=== PATIENT | female | born 2000 | race Asian ===

== ENCOUNTER 2023-10-10 18:38 | Emergency (ER) | payer OTHER, SELFPAY ==
[2023-10-10 18:40] VITALS: BP 127/110; PULSE 120; RESP 18; TEMP 36.1; O2SAT 99; BMI 21.8
--- NOTE | 2023-10-10 18:52 | EDS_ITS ---
HPI History of Present Illness Chief Complaint: Complaint Detail of Chief Complaint: Hematuria Informant: patient Onset/Context/Timing Onset: Today Narrative Narrative: Patient presents secondary to hematuria. About a week and a half ago she developed some dysuria and frequency and was seen at the health center at the [facility]. She was diagnosed with a UTI and treated with a 7-day course of cephalexin. She finished those antibiotics 4 days ago. Patient states she has had some intermittent bilateral pelvic pain, left greater than right. No back pain. Today she started having blood in her urine again. She went to the [facility] again where she was told there were multiple abnormalities on her urine dip and she was encouraged to come to the emergency room. She states there were no nitrites this time but there were ketones among other abnormalities. [facility] Medical History (Updated 10/10/23 @ 19:[address] Terra Dailey MD) Depression Seasonal asthma Home Medications escitalopram oxalate 10 mg tablet 10 mg PO DAILY 10/10/23 [History Last Taken Unknown] sulfamethoxazole 800 mg-trimethoprim 160 mg tablet (Bactrim DS) 1 tab PO BID 5 days #10 tabs 10/10/23 [Rx Last Taken Unknown] Allergy/AdvReac Type Severity Reaction Status Date / Time shellfish derived Allergy Severe Hives Verified 10/10/23 18:39 Social History Smoking Status: Never smoker ROS ROS ED Constitutional Constitutional ED: Denies chills or fever(s) Eyes Eyes: Denies discharge from eye(s) ENT ENT ED: Denies discharge from eye(s), rhinorrhea or sore throat Cardiovascular Cardiovascular: Denies chest pain Respiratory/Chest Respiratory/Chest: Denies cough or dyspnea Gastrointestinal Gastrointestinal: Reports abdominal pain; Denies diarrhea, nausea or vomiting Genitourinary Genitourinary ED: Reports hematuria and urinary frequency; Denies difficulty urinating Musculoskeletal Musculoskeletal: Denies back pain or extremity pain Integumentary Denies Abrasions or rash Neurologic Neurologic: Denies headache(s) or weakness Psychiatric Psychiatric: Denies anxiety or depression Allergic/Immunologic Allergic/Immunologic ED: Denies lip swelling or urticaria EXAM Physical Exam Const Vital Signs: 10/10/23 18:40 Temperature 96.9 F L Temperature Source Temporal Pulse Rate 120 H Respiratory Rate 18 Blood Pressure 127/110 H Blood Pressure Mean 115 Pulse Ox 99 Oxygen Delivery Method Room Air Positive well nourished and well developed General Appearance ED: well developed HEENT Reports moist mucous membranes Eyes EOMs intact bilaterally Chest Wall inspection of chest normal and palpation of chest normal Resp normal respiratory effort and clear to auscultation bilaterally Cardio regular rate and regular rhythm GI non-tender Auscultation: hypoactive bowel sounds Palpation: soft Back/Spine no CVA tenderness Extremity normal to inspection Neuro oriented x3 and no sensory deficits noted Motor Exam: strength 5/5 throughout Psych mental status grossly normal Skin no rashes or lesions noted MDM MDM MDM Narrative Medical decision making narrative: IV line established and patient given fluids. Labwork obtained to evaluate for leukocytosis, anemia, and electrolyte derangement. Urinalysis obtained to evaluate for infection/hematuria. Lab Data Attestation: I reviewed the patient's lab results. Labs: Laboratory Results - last 24 hr 10/10/23 19:03 WBC 16.2 H RBC 4.72 Hgb 14.1 Hct 42.0 MCV 89.0 MCH 29.9 MCHC 33.6 RDW Std Deviation 39.4 RDW Coeff of Loco 11.9 Plt Count 584 H MPV 8.6 Immature Gran % (Auto) 0.400 Neut % (Auto) 74.6 H Lymph % (Auto) 19.0 [place] % (Auto) 4.1 Eos % (Auto) 1.3 Baso % (Auto) 0.6 Absolute Neuts (auto) 12.1 H Absolute Lymphs (auto) 3.08 Nucleated RBC % 0 Sodium 139 Potassium 3.6 Chloride 107 Carbon Dioxide 28.0 Anion Gap 4 L BUN 15 Creatinine 0.81 Estim Creat Clear Calc 94.87 Est GFR (MDRD) Af Amer 115 Est GFR (MDRD) Non-Af 95 BUN/Creatinine Ratio 18.6 Glucose 121 H Calcium 9.0 Urine Color Yellow Urine Clarity Sl. Cloudy Urine pH 7.0 Ur Specific [place] 1.010 Urine Protein 30 H Urine Glucose (UA) Normal Urine Ketones 5 H Urine Occult Blood 250 H Urine Nitrite Negative Urine Bilirubin 1 H Urine Urobilinogen 4 H Ur Leukocyte Esterase 500 H Urine RBC 10-25 SEEN Urine WBC 10-25 SEEN Ur Squamous Epith Cells 0-5 SEEN Urine Bacteria 1+ Urine Mucus RARE Urine Test Negative Treatment and Re-Evaluation :: CBC reveals elevated white count at 16.2 with 74% neutrophils. Hemoglobin normal at 14.1. Chemistry studies reveal a glucose of 121. BUN and creatinine are normal. Urinalysis does reveal 1+ bacteria with 10-25 white cells and 500 leukocyte esterase. test is negative. Urine will be sent for culture. She was treated with Keflex on previous treatment course and will be switched to Bactrim DS. Patient was advised if the urine culture indicates need for different therapy she will be called. Return instructions given. Discharge Plan Triage Chief Complaint: Complaint ED Provider: Terra Dailey Dx/Rx/DC Orders Clinical Impression: UTI (urinary tract infection) Instructions: ED Cystitis Female Adult Prescriptions: New sulfamethoxazole-trimethoprim [Bactrim DS] 800-160 mg tablet 1 tab PO BID 5 Days Qty: 10 0RF No Action escitalopram oxalate 10 mg tablet 10 mg PO DAILY Patient Comments: TAKE 1 TABLET BY MOUTH DAILY Primary Care Provider: Care Physician,No Primary Referrals: [facility] [Group of Physicians] - 1 Week if not improving NOT,DEFINED [Non-Staff] - Disposition Disposition: Home, Self Care
[2023-10-10] MEDS: 0.9% Normal Saline (500mL Bag) 500 ML 999 ML IV (19:04)
--- OUTSIDE RECORDS SUMMARY | 2023-10-10 19:09 | XMS RPT_ITS | CCD ---
Author Name Unknown Address [address] [place] [address] Organization [facility] Care Team Providers Care Educational [employer] Curator Name Role Phone Unavailable Primary Care Provider ANDREA Foster Referring Unavailable Allergies Allergy Classification Reported Allergen(s) Allergy Type Date of Onset Reaction(s) Facility (2 sources) Shellfish; Translations: [SHELLFISH DERIVED] Drug Allergy 06-16-2022 Intolerance [facility] Medications Current Medications Medication Drug Class(es) Dates Sig (Normalized) Sig (Original) predniSONE 20 mg oral tablet (1 source) Start: 06-16-2022 End: 06-21-2022 take 2 tablets by mouth once daily predniSONE (DELTASONE) 20 mg tablet Take 2 tablets by mouth once daily for 5 days. 10 tablet 0 06/16/2022 06/21/2022 Active Completed/Discontinued Medications Medication Drug Class(es) Dates Sig (Normalized) Sig (Original) Albuterol (1 source) beta2-Adrenergic Agonist ALBUTER OL INHALATION Inhale as instructed. 0 Active Problems Problem Classification Problem Date Documented Da te Episodic/Chronic Acute bronchitis (2 sources) Viral bronchitis; Translations: [Acute bronchitis due to other specified organisms] Onset: 06-16-2022 Episodic Results Test Name Value Interpretation Reference Range Facil ity Vital Signs Date Time Vital Sign Value Performing Clinician Nury mendez 06-16-2022 08:47-0400 Body temperature 97.59 [degF] Andrea Gonzalez PA-C Work Phone: [facility] 06-16-2022 08:47-0400 Body weight 54.98 kg Andrea Gonzalez PA-C Work Phone: [facility] 06-16-2022 08:47-0400 Diastolic blood pressure 72 mm[Hg] Andrea Gonzalez PA-C Work Phone: [facility] 06-16-2022 08:47-0400 Heart rate 94 /min Andrea Gonzalez PA-C Work Phone: [facility] 06-16-2022 08:47-0400 Respiratory rate 18 /min Andrea Gonzalez PA-C Work Phone: [facility] 06-16-2022 08:47-0400 SaO2% (BldA) [Mass fraction] 98 % Andrea Gonzalez PA-C Work Phone: [facility] 06-16-2022 08:47-0400 Systolic blood pressure 110 mm[Hg] Andrea Gonzalez PA-C Work Phone: [facility] Encounters Encounter Date Encounter Type Care Provider Facility Start: 06-16-2022 End: 06-16-2022 ambulatory ANDREA GONZALEZ Facility:[facility] Start: 06-16-2022 End: 06-16-2022 Patient encounter procedure Andrea Gonzalez PA-C Work Phone: [facility] Plan of Treatment Date Care Activity Detail Author Start: 05-22-2022 Influenza vaccination INFLUENZA (#1) [facility] Start: 2021 Urine microalbumin profile DTAP,TDAP ,TD (1 - Tdap) [facility] Start: 2020 CHLAMYDIA SCREENING (18-24) CHLAMYDIA SCREENING (18-24) [facility] Start: 2020 GC (GONORRHEA) SCREE MICHAEL (18-24) GC (GONORRHEA) SCREENING (18-24) [facility] Start: 2020 HEPATITIS C SCREENING HEPATITIS C SC REENING [facility] Start: 2020 HIV SCREENING HIV SCREENING [facility] Start: 2016 PEDS TO ADULT TRANSI TION ANNUAL ASSESSMENT PEDS TO ADULT TRANSITION ANNUAL ASSESSMENT [facility] Start: 2014 Adult depression scr eening assessment DEPRESSION SCREENING [facility] Start: 2014 PEDS TO ADULT TRANSI TION INITIAL DISCUSSION PEDS TO ADULT TRANSITION INITIAL DISCUSSION [facility] Start: 2013 HPV VACCINE (1 - 2-d ose series) HPV VACCINE (1 - 2-dose series) [facility] Start: 2012 MENINGOCOCCAL B: Con block hacker based on risk (1 of 2 - Risk Bexsero 2-dose series) MENINGOCOCCAL B: Consider based on risk (1 of 2 - Risk Bexsero 2-dose series) [facility] Start: 2002 COVID-19 VACCINE (#1) COVID-19 VACCI NE (#1) [facility] Start: 2002 HEPATITIS B (1 of 3 - 3-dose series) HEPATITIS B (1 of 3 - 3-dose series) [facility] Payers Date Payer Category Payer Private Health Insurance [employer]IC [id number] 2022-Present [phone] [id number] [place] [address] PPO [id number] 2022 Private Health Insurance [id number] Social History Date Type Detail Facility Start: [facility] Start: 06-16-2022 Tobacco use and exposure Smokeless tobacco non-user [facility] Start: 2002 Sex Assigned At Not on file [facility] Start: 06-06-2022 End: 06-16-2022 Exposure to SARS-CoV-2 (event) Not sure [facility] Work Phone: Progress note 06-16-2022 Note Date & Type Note Facility 06-16-2022 Note HNO ID: [id number] Author: Andrea Gonzalez PA-C Service: ? Author Type: Physician Warehouse Shipping Receiving Clerk Type: Progress Notes Filed: 06/16/2022 10:28 AM Note Text: This note was created using The History Pressriter. Subjective Genesis Will is a 22 year old female. HPI Presents with cough over the past 9 days. She states the cough keeps her up at night. When she lays down flat she feels like she cannot cough and she is short of breath. She does have a history of asthma and has been using her albuterol inhaler. She was at the [facility] twice. They did call her and Tessalon last night but she has not picked that up yet. No recent fever. Her ribs do hurt when she coughs. She denies leg pain or swelling. She took a COVID test every day of her illness and they have all come up negative. She has had some posttussive emesis. No diarrhea. Review of Systems Constitutional: Positive for fatigue. Negative for fever. HENT: Positive for congestion and sore throat. Negative for ear pain. Respiratory: Positive for cough, shortness of breath and wheezing. Cardiovascular: Rib pain with cough All other systems reviewed and are negative. No past medical history on file. Current Outpatient Medications Medication Sig Dispense Refill escitalopram oxalate (LEXAPRO) 10 mg tablet Take 10 mg by mouth once daily. ALBUTEROL INHALATION Inhale as instructed. predniSONE (DELTASONE) 20 mg tablet Take 2 tablets by mouth once daily for 5 days. 10 tablet 0 No current facility-administered medications for this visit. No past surgical history on file. No family history on file. Social History Tobacco Use Smoking status: Never Smokeless tobacco: Never Objective BP 110/72 Pulse 94 Temp 36.4 ?C (97.6 ?F) Resp 18 Wt 55 kg (121 lb 3.2 oz) SpO2 98% Physical Exam Vitals reviewed. Constitutional: Appearance: Normal appearance. HENT: Head: Normocephalic and atraumatic. Right Ear: Tympanic membrane, ear canal and external ear normal. Left Ear: Tympanic membrane, ear canal and external ear normal. Nose: Nose normal. Mouth/Throat: Mouth: Mucous membranes are moist. Pharynx: Oropharynx is clear. Cardiovascular: Rate and Rhythm: Normal rate and regular rhythm. Heart sounds: Normal heart sounds. Pulmonary: Effort: Pulmonary effort is normal. No respiratory distress. Breath sounds: Normal breath sounds. No wheezing. Comments: Harsh cough noted Musculoskeletal: Cervical back: Neck supple. Skin: General: Skin is warm and dry. Findings: No rash. Neurological: General: No focal deficit present. Mental Status: She is alert and oriented to person, place, and time. Assessment and Plan ASSESSMENT/PLAN: 1. Viral bronchitis - ICD9: 466.0, ICD10: J20.8 Chest x-ray is clear. I feel she does have a viral bronchitis. She had Arnaldo called in previously, I will add prednisone. Discussed using some Benadryl at night as well. Albuterol inhaler as needed. If not improving follow-up. If she spikes a fever needs to be seen again here. Patient agreeable with plan. - XR CHEST 2V FRONTAL/LAT Andrea Gonzalez PA-C [facility] Progress note 06-16-2022 Note Date & Type Note Facility 06-16-2022 Note HNO ID: [id number] Author: RT Elvia(R) Service: ? Author Type: Asian Art Curator Type: Progress Notes Filed: 06/16/2022 9:37 AM Note Text: Radiology Service Progress Note PATIENT NAME: Genesis Will DATE OF SERVICE: June 16, 2022 TIME: 9:30 AM PATIENT IDENTITY VERIFICATION COMPLETED USING TWO (2) IDENTIFIERS: Name and Date of confirmed by patient verbally. FALL SCREENING: Has the patient had 2 falls in the last year or 1 fall with injury or currently using an Ambulatory Assistive Device (Walker, Cane, Wheelchair, Crutches, etc.)? No PATIENT GENDER DATA: Female. status: : No status: NO. PATIENT RELEVANT IMPLANT DATA REVIEWED: Yes RADIOLOGY DEPARTMENT: General X-ray: Exam(s) Completed: Chest X-Ray PERIPHERAL IV DATA: Not applicable SIGNED BY: RT Elvia(R) June 16, 2022 9:30 AM [facility] History of Present illness Narrative 06-16-2022 Andrea Gonzalez PA-C - 06/16/2022 10:26 AM EDT Note Date & Type Note Facility 06-16-2022 History of Presen t illness Narrative This note was created using Jiff. Subjective Genesis Will is a 22 year old female. HPI Presents with cough over the past 9 days. She states the cough keeps her up at night. When she lays down flat she feels like she cannot cough and she is short of breath. She does have a history of asthma and has been using her albuterol inhaler. She was at the [facility] twice. They did call her and Tessalon last night but she has not picked that up yet. No recent fever. Her ribs do hurt when she coughs. She denies leg pain or swelling. She took a COVID test every day of her illness and they have all come up negative. She has had some posttussive emesis. No diarrhea. Review of Systems Constitutional: Positive for fatigue. Negative for fever. HENT: Positive for congestion and sore throat. Negative for ear pain. Respiratory: Positive for cough, shortness of breath and wheezing. Cardiovascular: Rib pain with cough All other systems reviewed and are negative. No past medical history on file. Current Outpatient Medications Medication Sig Dispense Refill escitalopram oxalate (LEXAPRO) 10 mg tablet Take 10 mg by mouth once daily. ALBUTEROL INHALATION Inhale as instructed. predniSONE (DELTASONE) 20 mg tablet Take 2 tablets by mouth once daily for 5 days. 10 tablet 0 No current facility-administered medications for this visit. No past surgical history on file. No family history on file. Social History Tobacco Use Smoking status: Never Smokeless tobacco: Never Objective BP 110/72 Pulse 94 Temp 36.4 C (97.6 F) Resp 18 Wt 55 kg (121 lb 3.2 oz) SpO2 98% Physical Exam Vitals reviewed. Constitutional: Appearance: Normal appearance. HENT: Head: Normocephalic and atraumatic. Right Ear: Tympanic membrane, ear canal and external ear normal. Left Ear: Tympanic membrane, ear canal and external ear normal. Nose: Nose normal. Mouth/Throat: Mouth: Mucous membranes are moist. Pharynx: Oropharynx is clear. Cardiovascular: Rate and Rhythm: Normal rate and regular rhythm. Heart sounds: Normal heart sounds. Pulmonary: Effort: Pulmonary effort is normal. No respiratory distress. Breath sounds: Normal breath sounds. No wheezing. Comments: Harsh cough noted Musculoskeletal: Cervical back: Neck supple. Skin: General: Skin is warm and dry. Findings: No rash. Neurological: General: No focal deficit present. Mental Status: She is alert and oriented to person, place, and time. Assessment and Plan ASSESSMENT/PLAN: 1. Viral bronchitis - ICD9: 466.0, ICD10: J20.8 Chest x-ray is clear. I feel she does have a viral bronchitis. She had Isabellasalon called in previously, I will add prednisone. Discussed using some Benadryl at night as well. Albuterol inhaler as needed. If not improving follow-up. If she spikes a fever needs to be seen again here. Patient agreeable with plan. - XR CHEST 2V FRONTAL/LAT Andrae Gonzalez PA-C documented in this encounter [facility] Evaluation note Note Date & Type Note Facility documented in this encounter [facility] Summary Purpose Family History No Family History Records Found Advance Directives No Advanced Directives Records Found Additional Source Comments Source Comments (unrecognize d section and content) In the event this informatio n is protected by the Federal Confidentiality of Alcohol and Drug Abuse Patient Records regulations: The Federal rules restrict any use of the information to criminally investigate or prosecute any alcohol or drug abuse patient.[facility] Reason for Visit (unrecogniz ed section and content) INFORMATION SOURCE (unrecogn ized section and content) FOR RECORDS PERTAINING TO PATIENTS WHO ARE OR HAVE BEEN ENROLLED IN A CHEMICAL DEPENDENCY/SUBSTANCEABUSE PROGRAM, SOME INFORMATION MAY BE OMITTED. This clinical summary was aggregated from multiple sources. Caution should be exercised in using it in the provision of clinical care. This summary normalizes information from multiple sources, and as a consequence, information in this document may materially change the coding, format and clinical context of patient data. In addition, data may be omitted in some cases. CLINICAL DECISIONS SHOULD BE BASED ON THE PRIMARY CLINICAL RECORDS. [employer] [facility]. provides no warranty or guarantee of the accuracy or completeness of information in this document.
[2023-10-10 19:12] LABS: Color, Urine Yellow (Yellow); Glucose, Dipstick Normal (Normal); Internal QC Validated? YES +Cl - CLEAR BKGD; Ketone-Dipstick 5 mg/dl (Negative); Leukocyte Esterase-Dipstick 500 /ul (Negative); Nitrite-Dipstick Negative (Negative); Occult Blood-Urine 250 /ul (Negative); Protein-Dipstick 30 mg/dl (Negative); Urine Clarity Sl. Cloudy (Clear); Urine Urobilinogen 4 mg/dl (Normal)
[2023-10-10 19:13] LABS: Record Kit Lot#,Urine Preg HCG0000718086; Urine Bilirubin Dipstick 1 mg/dL (Negative)
[2023-10-10 19:15] LABS: Absolute Lymphocyte Count 3.08 X10^3/uL (0.83-4.51); Absolute Neutrophil Count 12.1 X10^3/uL (2.0-7.7); Basophil# 0.09 X10^3/uL; Basophil% 0.6 % (0-1); Eosinophil# 0.21 X10^3/uL; Eosinophils% 1.3 % (0-5); Hemoglobin 14.1 g/dL (12.0-15.0); Lymphocyte # 3.08 X10^3/ul (0.83-4.51); Mean Corp Hgb Conc 33.6 g/dL (32-36); Mean Corpuscular Hgb 29.9 pg (27.0-32.0); Mean Platelet Vol. 8.6 fl (6.2-12.0); Monocyte# 0.66 X10^3/uL; Monocyte% 4.1 % (0-10); NRBC Flagged by Analyzer 0 % (0-5); Neutrophil # 12.09 X10^3/uL (2.7-7.7); Neutrophil % 74.6 % (47-70); Platelet Count 584 K/mm3 (150-450); Pregnancy, Urine Negative Negative; RBC Distribution Width CV 11.9 % (11.6-14.6); RBC Distribution Width SD 39.4 fl (35.1-43.9); Red Blood Count 4.72 M/mm3 (4.2-5.4); White Blood Count 16.2 K/mm3 (4.4-11.0)
[2023-10-10 19:21] LABS: Bacteria 1+ /hpf (None Seen); Mucous, Urine RARE /hpf (<or=2+); Red Blood Cells-Urine 10-25 SEEN /hpf (0-5); Squamous Epithelial Cells - UA 0-5 SEEN /hpf (5-10); White Blood Cells 10-25 SEEN /hpf (0-5)
[2023-10-10 19:29] LABS: Anion Gap 4 (5-15); BUN 15 mg/dL (7-18); BUN/Creat Ratio 18.6 RATIO (10-20); Chloride 107 mmol/L (98-107); Creatinine, Serum 0.81 mg/dL (0.55-1.02); EST Glomerular Filtration Rate 95 mL/min (>60); Est Glom Filt Rate - Afr Amer 115 mL/min (>60); Estimated Creatinine Clearance 94.87 ml/min; Glucose 121 mg/dL (74-106); Potassium 3.6 mmol/L (3.5-5.1); Sodium Level 139 mmol/L (136-145)
[2023-10-10] MEDS: Smz/Tmp Ds Tablet 1 TABLET PO (20:06)
== END 2023-10-10 20:14 | disposition home or self-care (01) ==
PROVIDERS: Emergency Provider Emergency Medicine; Visit Provider Emergency Medicine
DX: N39.0 Urinary tract infection, site not specified (principal); F32.A Depression, unspecified
CPT/HCPCS: 80048; 81001; 81025; 85025; 87086; 87088; 87186; 96360; 99283; J7030